=== PATIENT | male | born 1945 | race Caucasian/White ===

== ENCOUNTER → 2019-03-10 | Outpatient (CLI) | payer MEDICARE ==
[2019-03-10 17:25] LABS: Egg White IgE <0.10 kU/L
[2019-03-10 17:26] LABS: Codfish IgE <0.10 kU/L
[2019-03-10 17:27] LABS: Peanut IgE 0.14 kU/L; Shrimp IgE <0.10 kU/L; Soybean IgE <0.10 kU/L
[2019-03-10 17:29] LABS: Clam IgE <0.10 kU/L; Scallop IgE <0.10 kU/L; Walnut IgE (Food) <0.10 kU/L
[2019-03-10 17:34] LABS: Cat Epith & Dander IgE <0.10 kU/L; Dog Dander IgE <0.10 kU/L
[2019-03-10 17:35] LABS: Cladosporian herbarum IgE <0.10 kU/L; Cockroach IgE 0.43 kU/L
[2019-03-10 17:36] LABS: Alternaria alternata IgE <0.10 kU/L; Aspergillus fumagatus IgE <0.10 kU/L; Birch IgE 0.13 kU/L
[2019-03-10 17:37] LABS: Elm IgE 0.14 kU/L; Oak IgE 0.13 kU/L
[2019-03-10 17:38] LABS: Ragweed,Common IgE <0.10 kU/L; Red Top (Bentgrass) IgE <0.10 kU/L
== END | disposition home or self-care (01) ==
LOC: LABWHC1 09:40
PROVIDERS: ATTEND Internal Medicine Critical Care Medicine
DX: R06.00 Dyspnea, unspecified (principal); R06.2 Wheezing
CPT/HCPCS: 36415; 82785; 85008; 86003